=== PATIENT | male | born 1970 | race Caucasian/White ===

== ENCOUNTER 2021-02-10 12:27 | Emergency (ER) | payer SELFPAY ==
[2021-02-10] MEDS ORDERED: COLCHICINE0.6 M1 PO (14:22)
[2021-02-10] MEDS ORDERED: PREDNISONE 20 M20 MG PO (14:22)
== END 2021-02-10 15:05 | disposition home or self-care (01) ==
LOC: ER1 12:27
DX: M10.9 Gout, unspecified (principal)
CPT/HCPCS: 73610; 73630; 99283